=== PATIENT | female | born 2000 ===

== ENCOUNTER → 2022-11-03 | Outpatient (CLI) | payer OTHER ==
[~2022-11-03] MED LIST: METO5A PO; ONDA4 PO; PANT40 PO; PROP10 PO
== END | disposition home or self-care (01) ==
LOC: LAB SHORT 16:45 → LAB 16:45
DX: O26.859 Spotting complicating pregnancy, unspecified trimester (principal)
CPT/HCPCS: 84702

== ENCOUNTER 2022-11-10 08:31 | Day surgery (SDC) | payer OTHER ==
[2022-11-10 17:05] VITALS: BP 109/68
[2022-11-10] MEDS ORDERED: PANT40 PO (17:34)
[2022-11-10] MEDS ORDERED: ONDA4 PO (17:34)
[2022-11-10] MEDS ORDERED: METO5A PO (17:35)
[2022-11-10] MEDS ORDERED: PROP10 PO (17:48)
--- NOTE | 2022-11-14 09:36 | NUR ---
PT CALLED, REPORTS POWERGLIDE INSERTION SITE ITCHY AND SORE. PT WILL PLAN TO COME IN AFTER WORK TODAY AT 1630 TO HAVE IT EVALUATED.
== END 2022-11-10 18:07 | disposition home or self-care (01) ==
LOC: ATC 08:31
DX: O21.9 Vomiting of pregnancy, unspecified (principal); Z3A.00 Weeks of gestation of pregnancy not specified
CPT/HCPCS: 96360; C1751; J7120

== ENCOUNTER 2022-11-14 14:01 | Day surgery (SDC) | payer OTHER ==
[2022-11-14 16:58] VITALS: BP 116/75
== END 2022-11-14 17:05 | disposition home or self-care (01) ==
LOC: ATC 14:01
DX: O21.9 Vomiting of pregnancy, unspecified (principal); Z3A.00 Weeks of gestation of pregnancy not specified; Z79.899 Other long term (current) drug therapy
CPT/HCPCS: 99211

== ENCOUNTER 2022-11-16 02:36 | Day surgery (SDC) | payer OTHER ==
[2022-11-16 08:34] VITALS: BP 128/69
== END 2022-11-16 10:15 | disposition home or self-care (01) ==
LOC: ATC 02:36
DX: O21.9 Vomiting of pregnancy, unspecified (principal); Z3A.00 Weeks of gestation of pregnancy not specified
CPT/HCPCS: 96360; J7120

== ENCOUNTER → 2022-11-22 | Outpatient (CLI) | payer OTHER ==
[2022-11-24 03:10] LABS: CHLAMYDIA TRACHOMATIS, NAA Negative (Negative)
== END | disposition home or self-care (01) ==
LOC: LAB SHORT 11:43 → LAB 11:43
PROVIDERS: Registered Nurse Community Health
DX: Z34.81 Encounter for supervision of other normal pregnancy, first trimester (principal)
CPT/HCPCS: 87491; 87591

== ENCOUNTER → 2023-03-29 | Outpatient (CLI) | payer OTHER ==
[2023-03-29 14:50] LABS: Hematocrit 31.9 % (33.0-51.0); Hemoglobin 10.4 g/dL (11.5-16.0)
== END | disposition home or self-care (01) ==
LOC: LAB SHORT 13:47 → LAB 13:47
PROVIDERS: Registered Nurse Community Health
DX: Z34.82 Encounter for supervision of other normal pregnancy, second trimester (principal)
CPT/HCPCS: 82950; 85014; 85018

== ENCOUNTER → 2023-05-22 | Outpatient (CLI) | payer OTHER | END | disposition home or self-care (01) | LOC: LAB 10:00 → LAB SHORT 10:00 | DX: Z34.83 Encounter for supervision of other normal pregnancy, third trimester (principal) | CPT/HCPCS: 87081; 87150 ==

== ENCOUNTER 2023-06-11 19:58 | Inpatient (IN) | payer OTHER ==
[~2023-06-11] VITALS: Ht 167.6 cm; Wt 101.8 kg
[2023-06-11 20:14] VITALS: BP 125/75
[2023-06-11 20:46] LABS: BASOPHILS ABSOLUTE AUTO 0.03 K/mm3 (0.00-0.23); BASOPHILS PERCENT AUTO 0 % (0-2); EOSINOPHILS ABSOLUTE AUTO 0.04 K/mm3 (0.00-0.68); EOSINOPHILS PERCENT AUTO 0 % (0-6); Hemoglobin 9.1 g/dL (11.5-16.0); IMMATURE GRAN ABSOLUTE AUTO 0.11 K/mm3 (0.00-0.10); IMMATURE GRAN PERCENT AUTO 1 % (0-1); LYMPHOCYTES ABSOLUTE AUTO 2.09 K/mm3 (0.84-5.20); LYMPHOCYTES PERCENT AUTO 22 % (21-46); MONOCYTES ABSOLUTE AUTO 0.78 K/mm3 (0.16-1.47); MONOCYTES PERCENT AUTO 8 % (4-13); Mean Corpuscular HGB 22.9 pg (26.0-34.0); Mean Corpuscular HGB Conc 31.4 g/dL (31.5-36.5); Mean Corpuscular Volume 73 fL (80-100); Mean Platelet Volume 11.3 fL (9.1-12.4); NEUTROPHILS ABSOLUTE AUTO 6.63 K/mm3 (1.96-9.15); NEUTROPHILS PERCENT AUTO 69 % (41-73); NRBC ABSOLUTE 0.05 K/mm3 (0.00-0.02); NRBC Auto 0.5 /100 WBC (0.0-0.2); Platelet Count 263 K/mm3 (150-400); RDW Coefficient Variation 15.1 % (11.7-14.2); RDW Standard Deviation 39.4 fL (35.1-46.3); Red Blood Cell Count 3.97 M/mm3 (3.80-5.20); White Blood Cell Count 9.68 K/mm3 (4.00-11.30)
[2023-06-11 23:08] VITALS: BP 101/57
[2023-06-12] VITALS (31 sets, daily range): BP systolic 93–134; BP diastolic 51–103
[2023-06-13 04:43] VITALS: BP 103/52
[2023-06-13 05:56] LABS: Hematocrit 28.6 % (33.0-51.0); Hemoglobin 8.9 g/dL (11.5-16.0); Mean Corpuscular HGB 22.8 pg (26.0-34.0); Mean Corpuscular HGB Conc 31.1 g/dL (31.5-36.5); Mean Corpuscular Volume 73 fL (80-100); Mean Platelet Volume 10.5 fL (9.1-12.4); NRBC ABSOLUTE 0.02 K/mm3 (0.00-0.02); NRBC Auto 0.1 /100 WBC (0.0-0.2); Platelet Count 236 K/mm3 (150-400); RDW Coefficient Variation 15.6 % (11.7-14.2); RDW Standard Deviation 40.4 fL (35.1-46.3); Red Blood Cell Count 3.91 M/mm3 (3.80-5.20); White Blood Cell Count 16.53 K/mm3 (4.00-11.30)
[2023-06-13 07:38] VITALS: BP 101/58
--- NOTE | 2023-06-13 10:49 | NUR ---
Pt sleeping soundly, nb asleep in open crib, SO asleep on dad bed. Did not wake when RN entered room
[2023-06-13 11:58] VITALS: BP 107/55
[2023-06-13 16:09] VITALS: BP 93/55
[2023-06-13 19:28] VITALS: BP 101/60
[2023-06-13 23:46] VITALS: BP 105/55
[2023-06-14 02:59] VITALS: BP 111/62
[2023-06-14 07:55] VITALS: BP 112/54
[2023-06-15] MEDS ORDERED: ABILIFY MYCITE5 M2 PO (11:41)
== END 2023-06-14 11:55 | disposition home or self-care (01) | DRG 807 ==
LOC: OBS 19:58 → BC 20:00 → OBS 20:10 → BC 20:14 → OBS 20:14 → BC 20:57
PROVIDERS: ADMIT Registered Nurse Community Health
PROC: 10E0XZZ Delivery of Products of Conception, External Approach (ICD-10-PCS; principal; 2023-06-12)
PROC: 3E0R3BZ Introduction of Anesthetic Agent into Spinal Canal, Percutaneous Approach (ICD-10-PCS; 2023-06-12)
PROC: 00HU33Z Insertion of Infusion Device into Spinal Canal, Percutaneous Approach (ICD-10-PCS; 2023-06-12)
PROC: 10907ZC Drainage of Amniotic Fluid, Therapeutic from Products of Conception, Via Natural or Artificial Opening (ICD-10-PCS; 2023-06-12)
PROC: 0HQ9XZZ Repair Perineum Skin, External Approach (ICD-10-PCS; 2023-06-12)
DX: O76 Abnormality in fetal heart rate and rhythm complicating labor and delivery (principal); Z37.0 Single live birth; O70.0 First degree perineal laceration during delivery; Z3A.39 39 weeks gestation of pregnancy; Z98.890 Other specified postprocedural states; Z88.8 Allergy status to other drugs, medicaments and biological substances; Z79.899 Other long term (current) drug therapy
CPT/HCPCS: 36415; 51702; 85025; 85027; 86850; 86900; 86901; 86923; A9270; J1885; J2405; J2590; J3010; J7120

== ENCOUNTER 2023-06-15 10:43 | Emergency (ER) | payer OTHER ==
[~2023-06-15] VITALS: Ht 167.6 cm; Wt 101.6 kg
[2023-06-15 10:58] VITALS: BP 153/87
[2023-06-15] MEDS ORDERED: ABILIFY MYCITE5 M2 PO (11:41)
== END 2023-06-15 13:23 | disposition home or self-care (01) ==
LOC: ER 10:43
DX: O99.345 Other mental disorders complicating the puerperium (principal); F53.0 Postpartum depression
CPT/HCPCS: 99282; A9270